=== PATIENT | male | born 1975 | race Caucasian/White ===

== ENCOUNTER 2016-06-10 20:44 | Emergency (ER) | payer SELFPAY ==
[2016-06-10 22:53] LABS: BILIRUBIN 1+ mg/dL (NEGATIVE); BLOOD NEGATIVE Ery/uL (NEGATIVE); CLARITY CLEAR (CLEAR); COLOR YELLOW (YELLOW); GLUCOSE (U) NORMAL (NORMAL); KETONE (U) 3+ (LARGE) mg/dL (NEGATIVE); LEUKOCYTES NEGATIVE Leu/uL (NEGATIVE); NITRITE NEGATIVE (NEGATIVE); PROTEIN TRACE (LOW) mg/dL (NEGATIVE); SPECIFIC GRAVITY 1.015 (1.001-1.030); UROBILINOGEN 0.2 mg/dL (0.2-1.0); pH 6.5 (5.0-9.0)
[2016-06-10 22:59] LABS: BASOPHIL 0.2 % (0-2); EOSINOPHIL 0.4 % (0-5); HCT 49.5 % (42.0-52.0); HGB 17.5 g/dl (13.2-18.0); LYMPHOCYTE 8.3 % (15-48); MCH 32.3 pg (25.0-31.0); MCHC 35.4 g/dL (32.0-36.0); MCV 91.3 fL (78.0-100.0); MPV 10.3 fL (6.0-9.5); NEUTROPHIL 83.1 % (41-80); PLT 187 K/uL (150-400); RBC 5.42 M/uL (4.70-6.00); RDW 14.1 % (11.5-14.0)
[2016-06-10 23:03] LABS: BACTERIA TRACE; SQUAMOUS EPITHELIAL CELLS RARE; URINARY RBC RARE; URINARY WBC RARE
[2016-06-10 23:04] LABS: MUCOUS LARGE
[2016-06-10 23:05] LABS: WBC 19.3 K/uL (4.0-10.5)
[2016-06-10 23:23] LABS: ALBUMIN 4.1 g/dL (3.5-5.0); BILIRUBIN - TOTAL 0.4 mg/dL (0.1-1.0); CREATININE 0.7 mg/dL (0.7-1.2); GLOBULIN (CALCULATION) 3.7 g/dL (2.2-4.2); POTASSIUM 3.5 mmol/L (3.5-5.1); TOTAL PROTEIN 7.8 g/dL (6.4-8.3)
[2016-06-11 00:14] LABS: LACTIC ACID 1.3 mmol/L (0.5-2.2)
== END 2016-06-11 04:05 | disposition other institution (70) ==
LOC: FER 20:44
PROVIDERS: Emergency Medicine
DX: K85.90 Acute pancreatitis without necrosis or infection, unspecified (principal); I10 Essential (primary) hypertension; F17.200 Nicotine dependence, unspecified, uncomplicated
CPT/HCPCS: 36415; 71010; 80053; 81001; 83605; 83690; 85025; 87040; G0480; J1170; J2405; J2543; Q9967

== ENCOUNTER 2016-06-24 19:08 | Day surgery (SDCO) | payer SELFPAY ==
[2016-06-24 19:53] LABS: BILIRUBIN 1+ mg/dL (NEGATIVE); BLOOD NEGATIVE Ery/uL (NEGATIVE); CLARITY CLEAR (CLEAR); COLOR YELLOW (YELLOW); GLUCOSE (U) NORMAL (NORMAL); KETONE (U) TRACE mg/dL (NEGATIVE); LEUKOCYTES NEGATIVE Leu/uL (NEGATIVE); NITRITE POSITIVE (NEGATIVE); PROTEIN TRACE (LOW) mg/dL (NEGATIVE); SPECIFIC GRAVITY >=1.030 (1.001-1.030); pH 5.5 (5.0-9.0)
[2016-06-24 19:58] LABS: CALCIUM OXALATE CRYSTALS TRACE; SQUAMOUS EPITHELIAL CELLS RARE
[2016-06-24 20:27] LABS: BASOPHIL 0.2 % (0-2); EOSINOPHIL 0.8 % (0-5); HCT 44.7 % (42.0-52.0); HGB 15.3 g/dl (13.2-18.0); LYMPHOCYTE 14.9 % (15-48); MCH 31.3 pg (25.0-31.0); MCHC 34.2 g/dL (32.0-36.0); MCV 91.4 fL (78.0-100.0); MONOCYTE 5.6 % (0-12); NEUTROPHIL 78.5 % (41-80); PLT 522 K/uL (150-400); RBC 4.89 M/uL (4.70-6.00); RDW 14.6 % (11.5-14.0); WBC 17.1 K/uL (4.0-10.5)
[2016-06-24 20:47] LABS: CREATININE 0.7 mg/dL (0.7-1.2)
[2016-06-24 20:48] LABS: ALBUMIN 3.6 g/dL (3.5-5.0); BILIRUBIN - TOTAL 0.2 mg/dL (0.1-1.0); POTASSIUM 4.4 mmol/L (3.5-5.1); TOTAL PROTEIN 6.6 g/dL (6.4-8.3)
[2016-06-25 04:43] LABS: BASOPHIL 0.3 % (0-2); EOSINOPHIL 1.8 % (0-5); HCT 44.2 % (42.0-52.0); HGB 14.9 g/dl (13.2-18.0); LYMPHOCYTE 22.7 % (15-48); MCH 31.2 pg (25.0-31.0); MCHC 33.7 g/dL (32.0-36.0); MCV 92.7 fL (78.0-100.0); MONOCYTE 7.9 % (0-12); MPV 9.8 fL (6.0-9.5); NEUTROPHIL 67.3 % (41-80); PLT 477 K/uL (150-400); RBC 4.77 M/uL (4.70-6.00); RDW 14.4 % (11.5-14.0)
[2016-06-25 04:53] LABS: INR 1.24 (0.9-1.2); PROTHROMBIN TIME 15.2 SECONDS (11.7-14.0)
[2016-06-25 05:02] LABS: CREATININE 0.7 mg/dL (0.7-1.2); POTASSIUM 4.2 mmol/L (3.5-5.1)
== END 2016-06-25 08:30 | disposition left against medical advice (07) ==
LOC: FER 19:08 → FTCU 23:02
PROVIDERS: Emergency Medicine; ADMIT Internal Medicine
DX: K85.90 Acute pancreatitis without necrosis or infection, unspecified (principal); K85.20 Alcohol induced acute pancreatitis without necrosis or infection; I10 Essential (primary) hypertension; F17.210 Nicotine dependence, cigarettes, uncomplicated; F41.9 Anxiety disorder, unspecified; Z82.49 Family history of ischemic heart disease and other diseases of the circulatory system; Z79.2 Long term (current) use of antibiotics; Z79.899 Other long term (current) drug therapy
CPT/HCPCS: 36415; 80048; 80053; 81001; 82150; 83605; 83690; 85025; 85610; 87040; 87088; G0378; J2175; J2405; J2543; Q9967

== ENCOUNTER 2016-08-29 21:52 | Emergency (ER) | payer OTHER, SELFPAY ==
[2016-08-29 22:53] LABS: BASOPHIL 0.3 % (0-2); EOSINOPHIL 1.7 % (0-5); HCT 42.8 % (42.0-52.0); HGB 15.3 g/dl (13.2-18.0); MCH 32.1 pg (25.0-31.0); MCHC 35.7 g/dL (32.0-36.0); MCV 89.7 fL (78.0-100.0); MPV 10.8 fL (6.0-9.5); PLT 189 K/uL (150-400); RBC 4.77 M/uL (4.70-6.00); RDW 14.2 % (11.5-14.0); WBC 10.4 K/uL (4.0-10.5)
[2016-08-29 23:02] LABS: ALBUMIN 4.1 g/dL (3.5-5.0); BILIRUBIN - TOTAL 0.4 mg/dL (0.1-1.0); CREATININE 0.7 mg/dL (0.7-1.2); POTASSIUM 3.4 mmol/L (3.5-5.1); TOTAL PROTEIN 7.1 g/dL (6.4-8.3)
== END 2016-08-30 00:35 | disposition left against medical advice (07) ==
LOC: FER 21:52
PROVIDERS: Nurse Practitioner Family
DX: R10.32 Left lower quadrant pain (principal); R11.0 Nausea; I10 Essential (primary) hypertension; F17.210 Nicotine dependence, cigarettes, uncomplicated; Z86.39 Personal history of other endocrine, nutritional and metabolic disease; Z79.899 Other long term (current) drug therapy; Z97.8 Presence of other specified devices
CPT/HCPCS: 36415; 74000; 80053; 80305; 85025

== ENCOUNTER 2016-08-31 18:16 | Emergency (ER) | payer SELFPAY ==
[2016-08-31 18:58] LABS: BASOPHIL 0.3 % (0-2); EOSINOPHIL 1.7 % (0-5); HCT 46.9 % (42.0-52.0); HGB 16.7 g/dl (13.2-18.0); LYMPHOCYTE 20.4 % (15-48); MCH 31.8 pg (25.0-31.0); MCHC 35.6 g/dL (32.0-36.0); MCV 89.3 fL (78.0-100.0); MONOCYTE 11.3 % (0-12); MPV 10.8 fL (6.0-9.5); NEUTROPHIL 66.3 % (41-80); PLT 255 K/uL (150-400); RBC 5.25 M/uL (4.70-6.00); RDW 14.4 % (11.5-14.0); WBC 13.7 K/uL (4.0-10.5)
[2016-08-31 19:01] LABS: CREATININE 0.8 mg/dL (0.7-1.2); POTASSIUM 3.5 mmol/L (3.5-5.1)
[2016-08-31 20:13] LABS: BILIRUBIN 2+ mg/dL (NEGATIVE); BLOOD NEGATIVE Ery/uL (NEGATIVE); CLARITY CLEAR (CLEAR); COLOR ORANGE (YELLOW); GLUCOSE (U) NORMAL (NORMAL); KETONE (U) TRACE mg/dL (NEGATIVE); LEUKOCYTES NEGATIVE Leu/uL (NEGATIVE); NITRITE POSITIVE (NEGATIVE); PROTEIN 1+ mg/dL (NEGATIVE); SPECIFIC GRAVITY >=1.030 (1.001-1.030)
[2016-08-31 20:16] LABS: SQUAMOUS EPITHELIAL CELLS RARE
== END 2016-08-31 22:33 | disposition home or self-care (01) ==
LOC: FER 18:16
PROVIDERS: Nurse Practitioner
DX: N39.0 Urinary tract infection, site not specified (principal); I10 Essential (primary) hypertension; K86.1 Other chronic pancreatitis; F17.210 Nicotine dependence, cigarettes, uncomplicated; Z97.8 Presence of other specified devices; Z79.899 Other long term (current) drug therapy
CPT/HCPCS: 36415; 80048; 81001; 82150; 83690; 85025; J2270; J2405; J2800